=== PATIENT | female | born 1970 | race Caucasian/White ===

== ENCOUNTER 2021-12-14 15:15 | Emergency (ER) | payer BC | END 2021-12-14 17:35 | disposition home or self-care (01) | LOC: JD.ED 15:15 | DX: S60.222A Contusion of left hand, initial encounter (principal); W01.0XXA Fall on same level from slipping, tripping and stumbling without subsequent striking against object, initial encounter | CPT/HCPCS: 73120-26-LT; 73120-LT; 99282; 99283 ==